=== PATIENT | male | born 1960 | race African-American/Black ===

== ENCOUNTER 2021-09-16 07:25 | Day surgery (SDC) | payer OTHER ==
[2021-09-16 07:59] VITALS: TEMP 98.7; O2SAT 99; BMI 33.0
[2021-09-16 08:12] LABS: Absolute Lymphocytes (CBC) 1.2 K/uL (0.7-4.9); Hematocrit 33.9 % (39.6-49.0); Lymphocytes % 29.1 % (15.3-44.8); MPV 9.1 fL (7.6-11.3); RBC Red Blood Cell Count 3.37 M/uL (4.33-5.43)
[2021-09-16] MEDS ORDERED: NA CHLORIDE 0.9% 500 ML ONE (08:19)
[2021-09-16 08:54] LABS: Blood Morphology Comment NOT SEEN (NOT SEEN); Platelet Estimate DECR; White Blood Cell Scan OK (OK)
[2021-09-16 11:16] LABS: Absolute Lymphocytes (CBC) 1.1 K/uL (0.7-4.9); Hematocrit 35.9 % (39.6-49.0); MPV 8.5 fL (7.6-11.3); RBC Red Blood Cell Count 3.54 M/uL (4.33-5.43)
[2021-09-16 12:05] VITALS: BP 130/70
== END 2021-09-16 11:15 | disposition home or self-care (01) ==
LOC: DS 07:25
PROVIDERS: ATTEND Internal Medicine Gastroenterology
DX: I85.00 Esophageal varices without bleeding (principal); B18.2 Chronic viral hepatitis C; I86.4 Gastric varices; D69.6 Thrombocytopenia, unspecified; K74.60 Unspecified cirrhosis of liver
CPT/HCPCS: 85025 ×2; 36415; 86900; 86850; 86901; 36430; P9035 ×2; J7050; P9100 ×2